=== PATIENT | female | born 1980 | race Caucasian/White ===

== ENCOUNTER 2016-08-30 13:01 | Emergency (ER) | payer OTHER ==
[~2016-08-30] VITALS: Ht 167.6 cm; Wt 79.1 kg
[2016-08-30 13:06] VITALS: BP 109/81; PULSE 84; RESP 14; TEMP 98.2; O2SAT 100
--- NOTE | 2016-08-30 13:20 | PD ---
HPI Chief Complaint: Skin Problem Time Seen by Provider: 13:18 Travel History International Travel<30 days: No Contact w/Intl Traveler<30days: No Traveled to known affect area: No History of Present Illness HPI 35-year-old female presents the emergency Department with fairly severe cold sores to the left lateral lower left at the corner of the mouth. Patient states she had an outbreak week ago on the right side but now she's had an outbreak for the past several days on the left side. Patient denies sore throat or difficulty breathing. She has tenderness in the trigeminal nerve distribution on the left. This is described as tingling pain. It is 4/10. She denies ear pain, fever, chills, or other symptoms. Patient has been using [id number] remedies without improvement. She has no known drug allergies. PFSH Past Medical History Diminished Hearing: No Medical other: Yes ([facility] ) Tetanus Vaccination: Unknown Influenza Vaccination: No ?: Not LMP: NOW Past Surgical History Cholecystectomy: Yes Social History Alcohol Use: No Tobacco Use: No Substance Use: No Allergies-Medications (Allergen,Severity, Reaction): Coded Allergies: No Known Allergies (Unverified , 08/30/16) Reported Meds & Prescriptions Reported Meds & Active Scripts Active Acyclovir Topical (Acyclovir) 5% Oint 1 Applic TOPICAL Q3HR Valtrex (Valacyclovir HCl) 1 Gm Tab 2,000 Mg PO BID Review of Systems General / Constitutional: No: Fever Eyes: No: Visual changes HENT: No: Headaches Cardiovascular: No: Chest Pain or Discomfort Respiratory: No: Shortness of Breath Gastrointestinal: No: Abdominal Pain Genitourinary: No: Dysuria Musculoskeletal: No: Pain Skin: Positive Rash Neurologic: No: Weakness Psychiatric: No: Depression Endocrine: No: Polydipsia Hematologic/Lymphatic: No: Easy Bruising Physical Exam Narrative GENERAL: Patient appears in no acute distress. SKIN: Warm and dry. Normal color. Normal turgor. Patient is obvious skull sore outbreak in the outer left lower lip towards the corner of the mouth. HEAD: Atraumatic. Normocephalic. EYES: Pupils equal and round. No scleral icterus. No injection or drainage. ENT: No nasal bleeding or discharge. Mucous membranes pink and moist. TMs are clear bilaterally pharynx is clear without viral lesions on the buccal membrane noted on the anterior. NECK: Trachea midline. Supple and nontender with mild lymphadenopathy bilaterally in the anterior cervical chains. CARDIOVASCULAR: Regular rate and rhythm. RESPIRATORY: No accessory muscle use. Clear to auscultation. Breath sounds equal bilaterally. MUSCULOSKELETAL: Extremities without clubbing, cyanosis, or edema. No obvious deformities. NEUROLOGICAL: Awake and alert. No obvious cranial nerve deficits. Motor grossly within normal limits. Five out of 5 muscle strength in the arms and legs. Normal speech. PSYCHIATRIC: Appropriate mood and affect; insight and judgment normal. Data Data Last Documented VS Vital Signs Date Time Temp Pulse Resp B/P Pulse Ox O2 Delivery O2 Flow Rate FiO2 08/30/16 13:06 98.2 84 14 109/81 100 MDM Medical Decision Making Medical Screen Exam Complete: Yes Emergency Medical Condition: Yes Differential Diagnosis HSV-1 outbreak. Skin rash. Trigeminal neuralgia. Narrative Course Patient is medically stable at time of exam. Patient has no difficulty swallowing or breathing. Patient will be treated with Valtrex thousand milligrams 2 tablets twice daily 1 with 1 refill. Patient also given acyclovir topical ointment 5 times daily for the next week. Patient take Tylenol as needed for pain. Recommend follow-up with local primary care physician or return to the ED with worsening symptoms as needed. Diagnosis Primary Impression: HSV-1 (herpes simplex virus 1) infection Referrals: [facility] Primary Care Physician Patient Instructions: General Instructions, Oral Herpes Simplex Virus Infections (ED) Additional Instructions: Patient has no difficulty swallowing or breathing. Patient will be treated with Valtrex thousand milligrams 2 tablets twice daily 1 with 1 refill. Patient also given acyclovir topical ointment 5 times daily for the next week. Patient take Tylenol as needed for pain. Recommend follow-up with local primary care physician or return to the ED with worsening symptoms as needed. Med/Other Pt SpecificInfo: Prescription(s) given Scripts Acyclovir Topical 5% Oint1 Applic TOPICAL Q3HR #5 GM Ref 0 Prov:Andreina Dalton MD 08/30/16 Valacyclovir (Valtrex)1 Gm Tab2,000 Mg PO BID #4 TAB Ref 2 Prov:Andreina Dalton MD 08/30/16 Disposition: 01 DISCHARGE HOME Condition: Stable Jose Borjas August 30, 2016 13:20
[2016-08-30] MEDS ORDERED: ACYC5OIN4 TOPICAL (13:21)
[2016-08-30] MEDS ORDERED: VALT1TAB PO (13:21)
== END 2016-08-30 13:33 | disposition home or self-care (01) ==
LOC: PHEFT 13:01
DX: B00.9 Herpesviral infection, unspecified (principal); E06.3 Autoimmune thyroiditis
CPT/HCPCS: 99283

== ENCOUNTER 2017-04-26 19:49 | Emergency (ER) | payer OTHER ==
[~2017-04-26] VITALS: Ht 170.2 cm; Wt 82.1 kg
[~2017-04-26 19:49] MED LIST: ACYC5OIN4 TOPICAL; VALT1TAB PO
[2017-04-26 19:59] VITALS: BP 117/74; PULSE 97; RESP 20; TEMP 99.4; O2SAT 99
--- NOTE | 2017-04-26 20:56 | PD ---
HPI Chief Complaint: Cold / Flu Symptoms Time Seen by Provider: 20:29 Travel History International Travel<30 days: No Contact w/Intl Traveler<30days: No Traveled to known affect area: No History of Present Illness HPI 36-year-old female since the ED for evaluation of 48 hour history of body aches , sinus congestion, clear rhinorrhea, nonproductive cough, sore throat, subjective fevers. She is not measured a fever at home. She denies nausea or vomiting. She states that over the last few hours her left ear starting to hurt her. She states that she sometimes gets tooth pain that she relates to sinus congestion. She states that she receive this years flu vaccine. She endorses sick contacts in 2 of her children. PFSH Past Medical History Diminished Hearing: No Tetanus Vaccination: Unknown Influenza Vaccination: No ?: Not LMP: 04-14-17 Past Surgical History Cholecystectomy: Yes Social History Alcohol Use: No Tobacco Use: No Substance Use: No Allergies-Medications (Allergen,Severity, Reaction): Coded Allergies: No Known Allergies (Unverified Adverse Reaction, Unknown, 04/26/17) Reported Meds & Prescriptions Reported Meds & Active Scripts Active Tamiflu (Oseltamivir Phosphate) 75 Mg Cap 75 Mg PO BID 5 Days Fluticasone Nasal Sandy 50 Mcg/Act Naspr 100 Mcg EACH NARE DAILY 14 Days 50 mcg/spray Amoxicillin 500 Mg Cap 500 Mg PO BID 10 Days Acyclovir Topical (Acyclovir) 5% Oint 1 Applic TOPICAL Q3HR Valtrex (Valacyclovir HCl) 1 Gm Tab 2,000 Mg PO BID Review of Systems Except as stated in HPI: all other systems reviewed are Neg Physical Exam Narrative GENERAL: Well-nourished, well-developed white female in no acute distress. SKIN: Warm and dry. HEAD: Normocephalic. Atraumatic. No tenderness to palpation of the facials sinuses. EYES: No scleral icterus. No injection or drainage. PERRLA. EOMI. ENT: Pearly quiñones tympanic on the right. Left tympanic membrane erythematous with serous effusion. No loss of membranes. Nasal mucosa is moist. Oropharynx without erythema, edema or exudate. NECK: Supple, trachea midline. No JVD. Positive anterior cervical LAD. CARDIOVASCULAR: Regular rate and rhythm without murmurs, gallops, or rubs. RESPIRATORY: Breath sounds clear and equal bilaterally. No accessory muscle use. GASTROINTESTINAL: Abdomen soft, non-tender, nondistended. + Bowel sounds MUSCULOSKELETAL: No cyanosis, or edema. BACK: Nontender without obvious deformity. No CVA tenderness. Data Data Last Documented VS Vital Signs Date Time Temp Pulse Resp B/P (MAP) Pulse Ox O2 Delivery O2 Flow Rate FiO2 04/26/17 19:59 99.4 97 20 117/74 (88) 99 Orders Orders Influenzae A/B Antigen (04/26/17 20:24) Ed Discharge Order (04/26/17 21:14) MDM Medical Decision Making Medical Screen Exam Complete: Yes Emergency Medical Condition: Yes Differential Diagnosis Arrow syndrome versus influenza versus allergic rhinitis versus otitis media versus other Narrative Course 36-year-old female since the ED for evaluation of 48 hour history of body aches , sinus congestion, clear rhinorrhea, nonproductive cough, sore throat, subjective fevers. She is not measured a fever at home. She denies nausea or vomiting. She states that over the last few hours her left ear starting to hurt her. She states that she receive this years flu vaccine. She endorses sick contacts in 2 of her children. Vitals reviewed. Patient afebrile on palpation. On physical exam she is ill-appearing. The left ear is consistent with otitis media. There is copious rhinorrhea. Exam otherwise unremarkable. Flu swab negative. However given that her daughter with similar symptoms tested positive we'll go ahead and treat with Tamiflu. She is also prescribed oxacillin for the ear infection. We discussed reasons to return to the ED. She understands the need to continue her symptomatically treatment. She is stable and discharged home. Diagnosis Primary Impression: Left otitis media with effusion Referrals: Primary Care Physician Patient Instructions: Ear Infection (ED), General Instructions Additional Instructions: Rest, hydrate. Take every antibiotic pill until they're all gone. Flonase 2 sprays daily as prescribed. Considering using an [id number] medication with decongestant such as Ana Laura-D or Mucinex D to dry secretions. Follow-up with primary care provider. Return to the ED for worsening symptoms or any urgent or emergent medical condition. Med/Other Pt SpecificInfo: Prescription(s) given Scripts Oseltamivir (Tamiflu) 75 Mg Cap 75 MG PO BID for Mgmt Viral Infection for 5 Days, #10 CAP 0 Refills Prov: Rox Evans MD 04/26/17 Fluticasone Nasal Sandy (Fluticasone Nasal Sandy) 50 Mcg/Act Naspr 100 MCG EACH NARE DAILY for Allergy Management for 14 Days, #1 BOTTLE 0 Refills 50 mcg/spray Prov: Rox Evans MD 04/26/17 Amoxicillin (Amoxicillin) 500 Mg Cap 500 MG PO BID for Infection for 10 Days, #20 CAP 0 Refills Prov: Rox Evans MD 04/26/17 Disposition: 01 DISCHARGE HOME Condition: Stable Sarah Michael Apr 26, 2017 20:56
[2017-04-26] MEDS ORDERED: AMOX500C PO (21:00)
[2017-04-26] MEDS ORDERED: FLUT50SP EACH NARE (21:14)
[2017-04-26] MEDS ORDERED: OSEL75 PO (21:17)
[2017-05-01] MEDS ORDERED: ERYTOIN10 RIGHT EYE (11:36)
== END 2017-04-26 21:26 | disposition home or self-care (01) ==
LOC: PHEFT 19:49
DX: H65.92 Unspecified nonsuppurative otitis media, left ear (principal); Z20.828 Contact with and (suspected) exposure to other viral communicable diseases; Z79.899 Other long term (current) drug therapy
CPT/HCPCS: 87804; 99284

== ENCOUNTER 2017-05-01 11:00 | Emergency (ER) | payer OTHER | END 2017-05-01 12:17 | disposition home or self-care (01) | LOC: PHEFT 11:00 | DX: H10.31 Unspecified acute conjunctivitis, right eye (principal); E06.3 Autoimmune thyroiditis | CPT/HCPCS: 99283 ==